=== PATIENT | female | born 1980 | race African-American/Black ===

== ENCOUNTER 2019-07-03 16:19 | Emergency (ER) | payer MEDICAID ==
[~2019-07-03] VITALS: Ht 165.1 cm; Wt 67.0 kg
[2019-07-03 18:30] VITALS: BP 144/95
== END 2019-07-03 19:14 | disposition home or self-care (01) ==
LOC: ER 16:19
DX: R22.1 Localized swelling, mass and lump, neck (principal); F17.210 Nicotine dependence, cigarettes, uncomplicated; Z98.890 Other specified postprocedural states
CPT/HCPCS: 87070; 87430; 99283